=== PATIENT | male | born 1955 | race Caucasian/White ===

== ENCOUNTER 2017-03-21 15:39 | Emergency (ER) | payer OTHER ==
[~2017-03-21] VITALS: Ht 182.9 cm; Wt 88.5 kg
[2017-03-21] MEDS ORDERED: VENTOLIN HFA18 GM INH (15:56)
[2017-03-21] MEDS ORDERED: RANITIDINE HCL150 M1 PO (16:46)
[2017-03-21] MEDS ORDERED: PREDNISONE20 MG PO (16:46)
[2017-03-21] MEDS ORDERED: LEVOTHYROXINE50 MCG PO (16:46)
[2017-03-21] MEDS ORDERED: NORVASC5 MG PO (16:47)
[2017-03-21] MEDS ORDERED: LISINOPRIL10 MG PO (16:48)
--- NOTE | 2017-03-21 19:26 | EKG ---
[facility] [address] [facility] [place] [address] Signed Sinus rhythm with short AK Biatrial enlargement Abnormal ECG No previous ECGs available Confirmed by NOLA ALBRIGHT MD ([id number] on 03/21/2017 7:26:29 PM Electronically Signed By: NOLA ALBRIGHT MD 03/21/17 1926 PATIENT NAME: ISABELA LAURENT Electrocardiogram DATE OF : 57 PHYSICIAN: NOLA ALBRIGHT MD REPORT #: [id number] REPORT IS CONFIDENTIAL AND NOT TO BE RELEASED WITHOUT AUTHORIZATION
== END 2017-03-21 17:40 | disposition home or self-care (01) ==
LOC: ED 15:39
DX: J44.9 Chronic obstructive pulmonary disease, unspecified (principal); M79.672 Pain in left foot; G89.29 Other chronic pain; I10 Essential (primary) hypertension; F17.200 Nicotine dependence, unspecified, uncomplicated; Z90.49 Acquired absence of other specified parts of digestive tract; Z88.0 Allergy status to penicillin; Z79.52 Long term (current) use of systemic steroids; Z79.899 Other long term (current) drug therapy
CPT/HCPCS: 71020; 80053; 83735; 83880; 84484; 85025; 93005; 93010; 99284